=== PATIENT | male | born 1985 | race Caucasian/White ===

== ENCOUNTER 2023-03-20 10:50 | Outpatient (CLI) | payer BC, SELFPAY ==
[2023-03-20 11:19] LABS: Hematocrit 48.4 % (42.0-52.0); Hemoglobin 15.9 g/dL (14.0-18.0); Mean Corpuscular HGB Conc 32.9 g/dl (32-36); Mean Corpuscular Hemoglobin 29.2 pg (26-34); Mean Platelet Volume 10.2 fl (7.4-10.4); Platelet Count Result 188 k/mm3 (150-375); Red Blood Count 5.44 M/mm3 (4.6-6.20); White Blood Count 7.6 K/mm3 (4.5-10.0)
[2023-03-20 11:30] LABS: Iron 105 ug/dL (49-181)
[2023-03-20 11:31] LABS: Alanine Aminotransferase 14 U/L (6-50); Albumin Level 4.6 g/dL (3.5-5.1); Alkaline Phosphatase 80 U/L (38-126); Anion Gap 10 mmol/L (8-16); Aspartate Amino Transferase 25 U/L (17-59); Bilirubin,Total 0.4 mg/dL (0.2-1.3); Blood Urea Nitrogen 15 mg/dL (9-20); CRP < 0.5 mg/dL (<1.0); Calcium 9.3 mg/dL (8.4-10.2); Carbon Dioxide 27 mmol/L (22-30); Chloride 104 mmol/L (98-107); Estimated Glomerular Filt Rate > 60; Glucose 109 mg/dL (65-110); Potassium 4.3 mmol/L (3.4-5.0); Sodium 141 mmol/L (137-145)
[2023-03-20 11:40] LABS: Percent Iron Saturation 26 % (20-50)
[2023-03-20 11:59] LABS: Erythrocyte Sedimentation Rate 1 mm/hr (0-20)
[2023-03-20 12:01] LABS: Hepatitis B Surface Antigen Negative (Negative)
[2023-03-20 13:14] LABS: Hepatitis B Surface Anti Res Indeterminate
[2023-03-22 16:13] LABS: Quantiferon TB Plus, 1T NEGATIVE (NEGATIVE); TB1-NIL 0.05 IU/mL; TB2-NIL 0.02 IU/mL
[2023-03-23 11:03] LABS: Hepatitis B Core Ab Total Nonreactive (Nonreactive)
== END 2023-03-20 10:51 | disposition home or self-care (01) ==
PROVIDERS: PCP Internal Medicine; Visit Provider Nurse Practitioner
DX: K51.90 Ulcerative colitis, unspecified, without complications (principal); R10.813 Right lower quadrant abdominal tenderness; R15.2 Fecal urgency
CPT/HCPCS: 36415; 80053; 82728; 83540; 83550; 85027; 85652; 86140; 86480; 86704; 86706; 87340

== ENCOUNTER 2023-04-07 02:57 | Day surgery (SDC) | payer BC, SELFPAY ==
[2023-03-31 11:59] VITALS: BMI 25.9
--- NOTE | 2023-04-05 12:19 | SUR.PREOP ---
Patient called regarding upcoming procedure. Message left on pt's voicemail regarding appointment times.
[2023-04-07 13:30] VITALS: BP 118/78; PULSE 61; RESP 18; TEMP 36.5; O2SAT 98; BMI 24.8
[2023-04-07] MEDS: LACTATED RINGERS 1,000 ML 150 ML IV CONT (13:54)
--- NOTE | 2023-04-07 14:07 | P.PNAN_ITS ---
Anes - Initial Pre Proc Eval Procedure: Operation Date: 04/07/23 14:00 Proposed Procedures p Esophagogastroduodenoscopy & Colonoscopy - Saeid Titus MD Date/Time: 04/07/23 14:07 Surgeon: Saeid Titus MD Pre Op Diagnosis: dysphagia,GERD,Ulcerative Colitis,Fecal Urgency Patient Data Age: 37 Gender: M Height: 1.68 m Weight: 69.9 kg Last Vital Signs Temp 36.5 C 04/07/23 13:30 Pulse 61 04/07/23 13:30 Resp 18 04/07/23 13:30 BP 118/78 04/07/23 13:30 Pulse Ox 98 04/07/23 13:30 O2 Del Method Room Air 04/07/23 13:30 Allergies Allergy/AdvReac Type Severity Reaction Status Date / Time shellfish derived Allergy Intermediate Swelling Verified 04/07/23 13:44 Home Medications Medication Instructions Recorded Confirmed Type sertraline 100 mg tablet 150 mg PO DAILY 06/04/20 04/07/23 History balsalazide 750 mg capsule 1,500 mg PO BID 03/20/23 04/07/23 History Patient hx anesthesia problems: none Family hx anesthesia problems: none Results Review: All pre-operative results and documents have been reviewed as part of the pre- operative evaluation. FORMERLY [facility], [facility] Past Medical History Medical History Anxiety At high risk for adverse medication event Dysphagia Fecal urgency GERD (gastroesophageal reflux disease) Hx of ulcerative colitis IBS (irritable bowel syndrome) RLQ abdominal tenderness Ulcerative colitis Surgical History Surgical History (Updated 04/07/23 @ 14:07 by Adolfo Sinclair MD) H/O colonoscopy Family History Family History Mother Heart disease Social History Social History Smoking status: Former smoker Tobacco type: cigarettes Alcohol intake: current Substance use type: marijuana Living arrangements: alone Gender identity (if verbalized by the patient): Male Anes - Eval Final PreProcedure Day of Procedure 04/07/23 14:07 Patient weight: normal Heart: regular rate and rhythm Lungs: clear to auscultation Airway: Mallampati scale class 1 Neurological: alert and oriented Last oral intake: >/= 8 hours ASA classification: III Emergent: no Anesthetic plan: proceed Anesthesia type and monitoring: general GIVS and standard monitoring Results Review: All pre-operative results and documents have been reviewed as part of the pre- operative evaluation. Informed Consent: The patient's anesthetic plan and its attendant risks and benefits were discussed with the patient/family/POA. Questions were solicited and answers provided to the satisfaction of the patient/family/POA.
--- NOTE | 2023-04-07 14:23 | WPDHPUPDATE1 ---
History and Physical Update Update Date/Time: 04/07/23 14:23 History and Physical has been reviewed, including an updated exam of the patient. There are NO changes in the patient's condition. Risks, benefits, and alternatives have been discussed and questions answered. Patient agrees to proceed with procedure.
--- NOTE | 2023-04-07 14:49 | SUR.OPER ---
egd ended at 1443 and colon started at 1449
[2023-04-07 15:04] VITALS: BP 98/60; PULSE 75; RESP 18; O2SAT 95
[2023-04-07 15:14] VITALS: BP 106/62; PULSE 64; RESP 18; O2SAT 97
[2023-04-07 15:24] VITALS: BP 117/77; PULSE 60; RESP 21; O2SAT 99
== END 2023-04-07 15:29 | disposition home or self-care (01) ==
PROVIDERS: PCP Internal Medicine; Visit Provider Internal Medicine Gastroenterology
PROC: 0DJ08ZZ Inspection of Upper Intestinal Tract, Via Natural or Artificial Opening Endoscopic (ICD-10-PCS; CPT 43235; principal; 2023-04-07 14:00)
DX: K51.90 Ulcerative colitis, unspecified, without complications (principal); K22.2 Esophageal obstruction; K57.30 Diverticulosis of large intestine without perforation or abscess without bleeding; R10.813 Right lower quadrant abdominal tenderness; R15.2 Fecal urgency; R13.10 Dysphagia, unspecified; K21.9 Gastro-esophageal reflux disease without esophagitis; Z87.891 Personal history of nicotine dependence
CPT/HCPCS: 43239; 43249; 45380; 88305; C1726; J2001; J2405; J2704; J3010; J7120